=== PATIENT | female | born 1950 | race Two or more races ===

== ENCOUNTER 2023-11-14 07:30 | Inpatient (IN) | payer OTHER ==
[2023-11-14] MEDS ORDERED: ZESTRIL10 M1 (10:05)
[2023-11-14] MEDS ORDERED: DILTIAZEM ER120 M2 (10:05)
[2023-11-18 13:41] LABS: HEMATOCRIT 36.3 % (36.0-45.00); HEMOGLOBIN 12.2 g/dL (12.0-15.00); MEAN CELL VOLUME 87.9 fL (80.00-100.00); MEAN CORPUSCULAR HEMOGLOBIN 29.5 pg (27.00-32.0); MEAN CORPUSCULAR HGB CONC 33.5 g/dl (32.0-36.0); PLATELET COUNT 330 K/uL (150-450); RED BLOOD COUNT 4.12 M/uL (4.00-6.00); RED CELL DISTRIBUTION WIDTH 15.1 % (11.5-14.5)
== END 2023-11-19 11:24 | disposition home or self-care (01) | DRG 743 ==
LOC: O/R 11-18 04:53 → CIR.AMB 11-18 07:30 → EDSTATUS 11-18 07:30 → OB/GYN 11-18 07:30 → O/R 11-18 15:44 → OB/GYN 11-18 15:46
PROVIDERS: ADMIT Obstetrics & Gynecology Gynecology; ATTEND Obstetrics & Gynecology Gynecology
PROC: 0USG7ZZ Reposition Vagina, Via Natural or Artificial Opening (ICD-10-PCS; 2023-11-18)
PROC: 0JQC0ZZ Repair Pelvic Region Subcutaneous Tissue and Fascia, Open Approach (ICD-10-PCS; 2023-11-18)
PROC: 0UT97ZZ Resection of Uterus, Via Natural or Artificial Opening (ICD-10-PCS; principal; 2023-11-18 09:15)
DX: N72 Inflammatory disease of cervix uteri (principal); Z20.822 Contact with and (suspected) exposure to COVID-19; N81.11 Cystocele, midline